=== PATIENT | female | born 1990 | race Caucasian/White ===

== ENCOUNTER 2016-12-12 18:59 | Emergency (ER) | payer BC ==
--- NOTE | 2016-12-12 19:28 | ERNOTE ---
<Emily Bowers - Last Filed: 12/12/16 19:43> Chest Pain/Cardiac HPI Chief Complaint: Palpitations Time Seen by Provider: 12/12/16 20:29 Source: patient Exam Limitations: no limitations Immunizations: IMMUNIZATION HX Immunizations Up to Date Yes History of Influenza Vaccine Yes Hx Pneumococcal Vaccination No Allergies/Adverse Reactions: Allergies No Known Allergies Allergy (Verified 02/18/16 13:54) Home Medications: HOME MEDICATIONS Metoprolol Succinate 25 mg PO QDIPM #30 tab.er.24h 12/12/16 [Last Taken Unknown] Potassium Chloride [K-Dur] 20 meq PO DAILY #14 tab 12/12/16 [Last Taken Unknown] Narrative: 26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 Pt has had this condition for awhile. She has been on Beta blockers in the remote past however abruptly stopped taking her Beta Cy one year ago for no reason. Denies chest pains or diaphoresis. Denies cough or congestion Review of Systems - Review of Systems Constitutional: Present: no symptoms reported EYE: Present: no symptoms reported ENT: Present: no symptoms reported Respiratory: Present: no symptoms reported Cardiology: Present: See HPI Gastrointestinal/Abdominal: Present: no symptoms reported Genitourinary: Present: no symptoms reported - Patient's Past Medical History Patient History - Medical: No pertinent hx, GERD Patient History - Cardiac/Respiratory: Arrhythmias Patient History - Cancer: No Hx of Cancer Patient History - Surgical Procedures: No surgical history Patient History - Other: None - Family History Father Family History - Medical: - Social History Living Situations: home Abuse History: No History of abuse Psych History: No pertinent hx Smoking Status: Current every day smoker Patient requests Smoking Cessation Consult: No Initiate information on Smoking Cessation: No Alcohol Use: none Drug Use: none - Immunizations Immunizations Up to Date: Yes Hx Pneumococcal Vaccination: No History of Influenza Vaccine: Yes Physical Exam - Physical Exam General Appearance: Present: wd/wn, alert, no apparent distress Ears, Nose, Throat: Present: normal ENT inspection Neck: Present: normal inspection, nontender, supple, full range of motion Respiratory: Present: no respiratory distress, normal breath sounds, no accessory muscle use, chest nontender, lungs clear Cardiovascular/Chest: Present: regular rate, rhythm, no murmur, normal peripheral pulses - rate is 98 and regular. pt states her pulse at work was 160 without any precipitating events ED Progress - Vital Signs Patient's Vital Signs:: I have reviewed the patient's vital signs. Vital Signs: Vital Signs 12/12/16 12/12/16 19:00 19:05 Temperature 37.5 C Pulse Rate 107 H 107 H Respiratory 18 Rate Blood Pressure 129/81 O2 Sat by Pulse 97 Oximetry - EKG EKG: NSR - Progress/Reassessment Chief Complaint: Palpitations - Transfer of Care Physician Sign Out: Emily Bowers Receiving Physician: Benny Riley Pending Results: Labs, X-ray results Expected Disposition: Discharge Departure - Departure Clinical Impression: Tachycardia Disposition: Home Follow Up Needed Condition: Good Instructions: Palpitations, [id number]-Wmer, Hypokalemia Additional Instructions: RESUME THE BETA CY AND A SMALL DOSE OF POTASSIUM YOUR BLOOD LEVEL WAS SLIGHTLY LOW. YOU NEED TO CALL YOUR DOCTOR OR THE CARDIOLOGY CLINIC HERE, , TO GET RECHECKED FOR THE POTASSIUM AND TO DISCUSS IF FURTHER EVALUATION OF YOUR HEART RATE PROBLEMS ARE NEEDED. Prescriptions: Metoprolol Succinate 25 mg PO QDIPM #30 tab.er.24h Potassium Chloride [K-Dur] 20 meq PO DAILY #14 tab <Benny Riley - Last Filed: 12/12/16 20:30> Chest Pain/Cardiac HPI Date of Service: 12/12/16 Immunizations: IMMUNIZATION HX Immunizations Up to Date Yes History of Influenza Vaccine Yes Hx Pneumococcal Vaccination No ED Progress - Results and Orders Patient's Lab Results:: I have reviewed the patient's lab results. Results and Orders: LABS ARE ALL NORMAL EXCEPT FOR A BORDERLINE LOW K+. - Vital Signs Vital Signs: Vital Signs 12/12/16 12/12/16 19:00 19:05 Temperature 37.5 C Pulse Rate 107 H 107 H Respiratory 18 Rate Blood Pressure 129/81 O2 Sat by Pulse 97 Oximetry - Progress/Reassessment Progress:: Improved - PT WILL BE DISCHARGED HOME ON BETA BLOCKERS AND K+ TO FOLLOW UP WITH PCP TO DISCUSS FURTHER EVALUATION.
[2016-12-12 19:36] LABS: Hematocrit 42.3 % (37.0-47.0); Hemoglobin 14.9 gm/dL (12.5-16.0); Mean Cell Volume 93.2 fl (78-100); Mean Corpuscular Hemoglobin 32.8 pg (27-31); Mean Corpuscular Hgb Conc 35.2 g/dl (32-36); Mean Platelet Volume 9.1 fl (6.0-9.5); Neutrophil # 4.5 K/mm3 (1.3-6.0); Neutrophil % 58.8 % (42-75.0); Platelet Count 239 K/mm3 (150-450); Red Blood Count 4.54 M/mm3 (4.2-5.4); Red Cell Distribution Width 11.5 % (11.5-14.0); White Blood Count 7.6 K/mm3 (4.0-10.5)
[2016-12-12 19:58] LABS: Albumin * 3.8 gm/dl (3.4-5.0); Anion Gap 12.2 mmol/L (6.8-13.8); BUN/Creatinine Ratio 11.3 (9.0-21.6); Bilirubin, Total 0.5 mg/dL (0.0-1.1); Ca. Corrected For Albumin 9.2 mg/dL (8.4-10.2); Calcium * 9.4 mg/dL (7.9-10.9); Carbon Dioxide 30.8 mmol/L (24-32.6); TSH * 0.852 uIU/mL (0.358-3.74); Total Protein 7.4 gm/dL (6.2-8.2)
[2016-12-12 20:04] LABS: Cocaine Ur Negative (NEGATIVE); Urine Barbiturate Negative (NEGATIVE); Urine Benzodiazepines Negative (NEGATIVE); Urine Opiates Negative (NEGATIVE); Urine PCP Negative (NEGATIVE); Urine THC Negative (NEGATIVE)
[2016-12-12 20:34] VITALS: BP 110/72
--- OUTSIDE RECORDS SUMMARY | 2016-12-12 20:38 | XMS REPORT | Continuity of Care Document ---
:1990 Author Organization [facility] ([facility]) Address [address] [place] [address] Phone [phone] Care Team Providers Name Role Phone Celine Bauer Primary Care Provider [phone] Source Comments This disclosure is being made pursuant to the Care Everywhere program, applicable federal and state laws, and may not contain all informaitonavailable regarding this patient.[facility] ([facility]) Active Allergies and Adverse Reactions No Known Allergies Current Medications Prescription Sig. Disp. Refills Start Date End Date Status CALCIUM CARBONATE (TUMS Take by mouth as Active PO) needed. promethazine 12.5 mg Take 1-2 Tabs by 30 Tab 1 09/27/2013 Active tablet mouth every 6 hours as needed. Indications: Migraine propranolol 60 mg XR Take 1 Cap (60 mg 30 Cap 11 12/21/2014 Active capsule total) by mouth daily clonazePAM 0.5 mg 1 tab qhs and 1/2 45 Tab 1 12/21/2014 Active tablet tab qam QUEtiapine 50 mg tablet Take 50mg nightly 120 Tab 1 12/27/2014 Active for 3 nights, then 100mg nightly for 3 nights, then 150mg nightly for 3 nights, then 200mg nightly thereafter. Active Problems Problem Noted Date Laceration 12/12/2014 Headache 01/24/2014 Dog bite of nose 11/22/2013 Eating disorder, unspecified 10/14/2013 Blurry vision 10/14/2013 Dyspnea 10/14/2013 Palpitation 10/14/2013 Anxiety state, unspecified 09/06/2013 IUD (intrauterine device) in place 04/21/2013 Overview: Mirena IUD inserted 04/21/13. Due for removal 04/2018. Perforated tympanic membrane 03/31/2013 Otorrhea 03/31/2013 Smoker 03/23/2013 Otalgia of right ear 03/11/2013 AOM (acute otitis media) 03/11/2013 Resolved Problems Problem Noted Date Resolved Date Threatened labor 01/28/2013 04/21/2013 Impaired glucose tolerance test 12/25/2012 04/21/2013 Overview: 1-hour WVR=945. 3-hour GTT [phone] Vaginal bleeding in 10/04/2012 04/21/2013 Overview: Pt reports intermittent spotting and bleeding throughout thus far. Had normal 10 wk sono confirming IUP with no subchorionic bleed or fluid in cul de sac. Pt reports similar bleeding throughout her last . Supervision of normal 07/27/2012 04/21/2013 Overview: At 09/28 visit, pt describes h/o hospitalizations with her last with concern for labor and chronic abruption. This has not been documented in her history. She describes receiving steroids and being on bed rest, but ultimately had term at 38 wk. Immunizations Name Dates Previously Given Next Due Influenza, quadrivalent PF 04/21/2013 Tdap 01/28/2013 Social History Tobacco Use Types Packs/Day Years Used Date Heavy Tobacco Smoker Cigarettes 1 2 Smokeless Tobacco: Never Used Tobacco Cessation:Ready to Quit: Yes; Counseling Given: Yes Comments: Alcohol Use Drinks/Week oz/Week Comments Yes 4 Cans of beer 1.5 Last Filed Vital Signs Vital Sign Reading Time Taken Blood Pressure 112/78 12/21/2014 3:23 PM CDT Pulse 97 12/21/2014 3:23 PM CDT Temperature 37.7 C (99.9 F) 12/21/2014 3:23 PM CDT Respiratory Rate 12 12/21/2014 3:23 PM CDT Height 1.6 m (5' 2.99") 12/21/2014 3:23 PM CDT Weight 47.356 kg (104 lb 6.4 oz) 12/21/2014 3:23 PM CDT Body Mass Index 18.5 12/21/2014 3:23 PM CDT Oxygen Saturation 99% 12/12/2014 6:21 AM CDT Plan of Care Patient Goal Type Goal Lifestyle Other Maintain current healthy habits. Health Maintenance Due Date Last Done Comments Hepatitis B Vaccine (1 of 3 - Primary Series) 1989 HPV Vaccine (1 of 3 - Female/Unknown 3 Dose Series) 2000 Lipid Disorder Screening 12/06/2007 MMR Vaccine 12/06/2007 Pneumococcal Vaccine (1 of 1 - PPSV23) 2008 Influenza Vaccine: Seasonal (#1) 02/12/2016 04/21/2013 Cervical Cancer Screening 04/21/2016 04/21/2013 Td Vaccine 01/28/2023 01/28/2013 Tdap Vaccine Completed 01/28/2013 Results from Last 3 Months Not on file
== END 2016-12-12 20:38 | disposition home or self-care (01) ==
LOC: ER 18:59
DX: R00.0 Tachycardia, unspecified (principal); F17.200 Nicotine dependence, unspecified, uncomplicated; Z91.14 Patient's other noncompliance with medication regimen

== ENCOUNTER 2017-04-16 11:46 | Emergency (ER) | payer BC ==
[2017-04-16 12:28] LABS: Hemoglobin 15.2 gm/dL (12.5-16.0); Mean Cell Volume 93.6 fl (78-100); Mean Corpuscular Hemoglobin 32.3 pg (27-31); Mean Corpuscular Hgb Conc 34.5 g/dl (32-36); Mean Platelet Volume 9.6 fl (6.0-9.5); Neutrophil # 4.2 K/mm3 (1.3-6.0); Platelet Count 256 K/mm3 (150-450); Red Cell Distribution Width 11.7 % (11.5-14.0); White Blood Count 7.1 K/mm3 (4.0-10.5)
[2017-04-16] MEDS ORDERED: ONDANSETRON HCL/PF 2 MG/ML VIAL IV ONE (12:48)
[2017-04-16] MEDS ORDERED: NORMAL SALINE 1,000 ML IV ONE (12:48)
--- NOTE | 2017-04-16 12:48 | ERNOTE ---
Chest Pain/Cardiac HPI Date of Service: 04/16/17 Chief Complaint: Palpitations Time Seen by Provider: 04/16/17 12:23 Source: patient Exam Limitations: no limitations Immunizations: IMMUNIZATION HX Immunizations Up to Date Yes History of Influenza Vaccine Yes Hx Pneumococcal Vaccination No Allergies/Adverse Reactions: Allergies No Known Allergies Allergy (Verified 04/16/17 12:14) Home Medications: HOME MEDICATIONS Omeprazole [Prilosec] 20 mg PO DAILY #30 cap 04/16/17 [Last Taken Unknown] Sertraline HCl [Zoloft] 50 mg PO DAILY #30 tab 04/16/17 [Last Taken Unknown] Narrative: Pt. comes in with c/o palpitations, acid indigestion, and weakness. Pt. states that she has been having these symptoms for over three months and is not able to pinpoint the exact date that it started but states that she has had difficulty with bulimia for 11 years. Pt. denies any SOB, CP, or fever, but states that she has chronic NVD. Pt. denies any prehospital treatment. Review of Systems - Review of Systems Constitutional: Present: fatigue, malaise. Absent: recent illness, fever, chills, weakness EYE: Present: no symptoms reported ENT: Present: no symptoms reported. Absent: nose congestion, nasal drainage, sore throat, throat swelling Respiratory: Present: no symptoms reported. Absent: shortness of breath, cough , wheezing Cardiology: Present: palpitations. Absent: chest pain Gastrointestinal/Abdominal: Present: nausea, vomiting, diarrhea, abdominal pain - LUQ, eating less, drinking less Genitourinary: Present: no symptoms reported Musculoskeletal: Present: no symptoms reported. Absent: back pain, joint pain Skin: Present: no symptoms reported - Patient's Past Medical History Patient History - Medical: GERD, Other - bulemia Patient History - Cardiac/Respiratory: Arrhythmias Patient History - Cancer: No Hx of Cancer Patient History - Surgical Procedures: No surgical history Patient History - Other: None - Family History Father Family History - Medical: - Social History Living Situations: home Abuse History: No History of abuse Psych History: No pertinent hx Alcohol Use: none Drug Use: none - Immunizations Immunizations Up to Date: Yes Hx Pneumococcal Vaccination: No History of Influenza Vaccine: Yes Physical Exam - Physical Exam General Appearance: Present: wd/wn, alert, no apparent distress Head Exam: Present: normal inspection, no evidence of injury Eye Exam: Normal inspection: bilateral, PERRL: bilateral, EOMI: bilateral Ears, Nose, Throat: Present: normal ENT inspection, pharyngeal erythema. Absent : nasal congestion, sinus pain/drainage, pharyngeal swelling, tonsillar exudate Neck: Present: normal inspection, nontender. Absent: lymphadenopathy (R), lymphadenopathy (L) Respiratory: Present: no respiratory distress, normal breath sounds, no accessory muscle use, chest nontender, lungs clear Cardiovascular/Chest: Present: no murmur, normal peripheral pulses, tachycardia Gastrointestinal/Abdominal: Present: normal bowel sounds, nontender, nondistended, soft, no organomegaly Back Exam: Present: normal inspection, normal range of motion, no CVA tenderness , no vertebral tenderness Extremity Exam: Present: normal inspection, non-tender, normal range of motion, no edema Neurological Exam: Present: alert, oriented, normal mood/affect, no motor/ sensory deficits Skin Exam: Present: normal color, warm/dry. Absent: pallor, skin rash ED Progress - Date and Time Seen: Date and Time: 04/16/17 13:38 Pt. with electrolyte imbalance but no severe changes. Will have pt. continue ensure and start prilosec and zoloft and have her follow up with the eating disorder clinic at [facility] for follow up per suyapa Strickland'josé manuel recommendation. 04/16/17 13:44 - Results and Orders Patient's Lab Results:: I have reviewed the patient's lab results. - Vital Signs Patient's Vital Signs:: I have reviewed the patient's vital signs. Vital Signs: Vital Signs 04/16/17 12:09 Temperature 37.0 C Pulse Rate 101 H Respiratory 16 Rate Blood Pressure 111/75 O2 Sat by Pulse 97 Oximetry - EKG EKG: NSR, other - short NC but no new acute changes EKG read: Reviewed by me EKG Comments: Interp by Dr Oliva - X-Ray X-Ray #1 X-Ray: chest Interpretation: Reviewed by me X-ray Comments: no acute cardiopulmonary process X-Ray #2 X-Ray: abdomen Interpretation: Reviewed by me X-ray Comments: R sided phlebolith and nonobstructive bowel gas pattern - Progress/Reassessment Chief Complaint: Palpitations Progress:: Improved Departure Clinical Impression: Bulimia nervosa - Departure Disposition: Home self-care Condition: Good Instructions: Eating Disorders, Bulimia Nervosa Additional Instructions: Please follow up with [facility] eating disorder clinic by calling for first available appointment with psychiatric care. Please continue ensure three times a day. Prescriptions: Omeprazole [Prilosec] 20 mg PO DAILY #30 cap Sertraline HCl [Zoloft] 50 mg PO DAILY #30 tab
[2017-04-16] MEDS ORDERED: SUCRALFATE 1 G/10 ML UDC PO ONE (12:49)
[2017-04-16] MEDS ORDERED: LIDOCAINE HCL 20 ML UDC PO ONE (12:49)
[2017-04-16] MEDS ORDERED: MAG HYDROX/ALUMINUM HYD/SIMETH 30 ML UDC PO ONE (12:49)
[2017-04-16 12:51] LABS: ALT 31 U/L (19-67); AST 33 U/L (0-48); Albumin * 3.6 gm/dl (3.4-5.0); Alkaline Phosphatase * 67 U/L (50-170); Anion Gap 10.6 mmol/L (6.8-13.8); BUN/Creatinine Ratio 18.3 (9.0-21.6); Bilirubin, Total 1.5 mg/dL (0.0-1.1); Blood Urea Nitrogen 15 mg/dL (3-23); Ca. Corrected For Albumin 9.1 mg/dL (8.4-10.2); Calcium * 9.1 mg/dL (7.9-10.9); Carbon Dioxide 31.7 mmol/L (24-32.6); Chloride 100 mmol/L (97-106); Glucose * 81 mg/dL (70-110); Magnesium 1.5 mg/dL (1.2-2.8); Potassium 3.3 mmol/L (3.4-4.6); Sodium 139 mmol/L (132-142); TSH * 1.569 uIU/mL (0.358-3.74); Troponin I Less than 0.017 ng/ml (0.00-0.10)
[2017-04-16 12:54] LABS: Prothrombin Time (Patient) 10.9 Seconds (9.4-11.4)
[2017-04-16 12:56] LABS: INR 1.05 INR (0.90-1.10); Partial Thrombolplastin Time 27.6 Seconds (24-32)
[2017-04-16] MEDS ORDERED: ONDANSETRON HCL/PF 2 MG/ML VIAL ONE (12:59)
[2017-04-16 13:14] VITALS: BP 130/78
[2017-04-16 13:21] LABS: Urine Bilirubin 1 mg/dl (NEGATIVE); Urine Blood Negative /ul (NEGATIVE); Urine Ketone 15 mg/dL (NEGATIVE); Urine Nitrite Negative (NEGATIVE); Urine Protein 15 mg/dL (NEGATIVE); Urine Specific Gravity >=1.030 SP.GR. (1.005-1.010); Urine Urobilinogen Normal (NORMAL)
[2017-04-16] MEDS ORDERED: hydrOXYzine PAMOATE 25 MG CAPSULE PO ONE (13:29)
[2017-04-16 13:30] LABS: Urine Appearance Clear; Urine Bacteria 1+; Urine Color Dark Yellow; Urine RBC 0-5 /hpf (0-5); Urine WBC None Seen /hpf (0-5)
[2017-04-16] MEDS ORDERED: hydrOXYzine PAMOATE 25 MG CAPSULE ONE (13:33)
== END 2017-04-16 14:12 | disposition home or self-care (01) ==
LOC: ER 11:46
DX: F50.2 Bulimia nervosa (principal)
CPT/HCPCS: 36415; 71020; 74020; 80053; 81001; 82330; 83735; 84100; 84443; 84484; 85025; 85610; 85730; 93005; 96374; 99283; J2405

== ENCOUNTER 2019-07-18 20:46 | Observation (INO) ==
[2019-07-18] MEDS ORDERED: ONDANSETRON HCL/PF 2 MG/ML VIAL IV ONE (21:21)
[2019-07-18] MEDS ORDERED: NORMAL SALINE 1,000 ML IV ONE ×2 (21:21→23:11)
--- NOTE | 2019-07-18 21:21 | ERNOTE ---
Medical Problem HPI - Narrative Date of Service: 07/18/19 - General Chief Complaint: Nausea/Vomiting Time Seen by Provider: 07/18/19 21:17 Source: patient Exam Limitations: no limitations - Immun/Allergies/Home Medications Immunizations: IMMUNIZATION HX Immunizations Up to Date Yes History of Influenza Vaccine Yes Hx Pneumococcal Vaccination Yes Allergies/Adverse Reactions: Allergies No Known Allergies Allergy (Verified 07/18/19 21:01) Home Medications: HOME MEDICATIONS prenat.vits,chitra,mze-bjrq-kbnfz 1 tab PO DAILY 03/16/19 [Last Taken Unknown] amoxicillin 875 mg-potassium clavulanate 125 mg tablet 1 tab PO BID 7 Days #14 tab 07/16/19 [Last Taken Unknown] - History of Present History Narrative: 28-year-old female complaining of nausea vomiting diarrhea for about 4 days where he had a week ago which she had ears irrigated she developed a sinus infection she was put on Augmentin and since then has been having nausea and vomiting and diarrhea . She comes to the ED complaining of feeling dry fatigued she is 7 months she is a 4 para 3 no significant past medical history she has not been able to tolerate solid food for a few days Date (Duration): 07/14/19 Time (Timing): 21:18 Timing: constant Severity: moderate Review of Systems - Review of Systems Constitutional: Present: no symptoms reported EYE: Present: no symptoms reported ENT: Present: no symptoms reported Respiratory: Present: no symptoms reported Cardiology: Present: no symptoms reported Gastrointestinal/Abdominal: Present: no symptoms reported Genitourinary: Present: no symptoms reported Musculoskeletal: Present: no symptoms reported Skin: Present: no symptoms reported Neurological: Present: no symptoms reported Endocrine: Present: no symptoms reported Hematologic/Lymphatic: Present: no symptoms reported Psych: Present: no symptoms reported All Other Systems: All systems neg except as marked Medical History (Last Reviewed 07/18/19 @ 21:19 by Prasanth Austin MD) LGSIL (low grade squamous intraepithelial dysplasia) (Acute) Colposcopy next visit (Acute) Initial OB visit The patient is dated by her LMP which is consistent with today's ultrasound Pap UTD GC/CT collected today PNL ordered today History of delivery (Acute) Offered progesterone which the patient declined History of tachycardia (Acute) Pt advised to see her veterinary medicine doctor for her tachycardia Vaginal discharge (Acute) SVT (supraventricular tachycardia) (Acute) Screening for condition (Acute) Left ankle sprain (Acute) Foot sprain (Acute) Tachycardia (Acute) Bulimia nervosa (Acute) Gastroenteritis and colitis, viral (Acute) Anemia Onset Date: Unknown Asthma Onset Date: Unknown Colitis Onset Date: Unknown Generalized anxiety disorder Onset Date: Unknown IBS (irritable bowel syndrome) Onset Date: Unknown Palpitations Onset Date: Unknown Tachycardia UTI (urinary tract infection) Onset Date: Unknown Surgical History: Surgical History (Last Reviewed 07/18/19 @ 21:19 by Prasanth Austin MD) History of placement of ear tubes Onset Date: Unknown Family History: Family History (Last Reviewed 07/18/19 @ 21:01 by Tiffanie Loredo, RN) Grandmother Heart problem Grandfather Leukemia Paternal Mother Cancer Hypertension Father Cancer Grandmother Cancer Paternal Grandfather Cancer Maternal Diabetes Social History: (Last Reviewed 07/18/19 @ 21:01 by Tiffanie Loredo RN) Social History: adopted: No Marital status: Single household members: significant other number of children: 2 number of grandchildren: 0 current occupational status: employed 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 Highest education level completed: high school graduate Sexually Active: Yes Service: No Tobacco: Smoking Status: Current every day smoker tobacco type: cigarettes Smoking cigarettes per day: 20.0 Smoking packs per day: 1 Alcohol: alcohol intake: former details: stopped with Substance Use: substance use type: does not use Dietary Habits: caffeine: No Physical Exam - Physical Exam General Appearance: Present: wd/wn, alert, no apparent distress Head Exam: Present: normal inspection Eye Exam: Normal inspection: bilateral, PERRL: bilateral, EOMI: bilateral Ears, Nose, Throat: Present: normal ENT inspection, dry mucous membranes Neck: Present: normal inspection Respiratory: Present: no respiratory distress Cardiovascular/Chest: Present: regular rate, rhythm Gastrointestinal/Abdominal: Present: normal bowel sounds, nontender, nondistended, soft Back Exam: Present: normal inspection Extremity Exam: Present: normal inspection Neurological Exam: Present: alert, oriented Skin Exam: Present: normal color, warm/dry Progress - Results and Orders Patient's Lab Results:: I have reviewed the patient's lab results. Results and Orders: Laboratory Tests 07/18/19 07/18/19 07/18/19 21:50 21:50 21:50 WBC 9.4 RBC 3.85 L Hgb 12.2 L Hct 35.5 L MCV 92.2 MCH 31.7 H MCHC 34.4 Plt Count 215 Neutrophils % 62.4 Lymphocytes % 31.2 Sodium 138 Plasma Sodium 138 Potassium 2.2 L* D Chloride 97 Carbon Dioxide 32.4 Anion Gap 10.8 BUN 4 Creatinine 0.56 Est GFR (Non-Af Amer) 136 H D BUN/Creatinine Ratio 7.1 L Random Glucose 70 Calcium 8.2 Calcium Adj for Albumin 9.4 Total Bilirubin 0.1 AST 16 ALT 11 L Alkaline Phosphatase 137 Total Protein 5.8 L Albumin 2.1 L Urine Color Yellow Urine Appearance Slightly cloudy Urine pH 8.5 Ur Specific [place] 1.010 Urine Protein 100 H Urine Glucose (UA) Negative Urine Ketones Negative Urine Blood Negative Urine Nitrate Negative Urine Bilirubin Negative Prot Sulfosalicylic Acd 2+ H Urine Urobilinogen Normal Ur Leukocyte Esterase Negative Urine RBC None seen Urine WBC 0-5 Ur Epithelial Cells 10-25 H Urine Bacteria 1+ H Urine Culture Comments No culture indicated - Vital Signs Patient's Vital Signs:: I have reviewed the patient's vital signs. Vital Signs: Vital Signs 07/18/19 20:57 Temperature 37 C Pulse Rate 79 Respiratory Rate 18 Blood Pressure 101/73 O2 Sat by Pulse Oximetry 99 - EKG EKG #1 EKG: NSR EKG read: Interp. by me EKG Comments: EKG sinus rhythm with sinus arrhythmia heart rate of 68 - Progress/Reassessment Chief Complaint: Nausea/Vomiting Progress:: Improved Plan - Plan Plan: With patient's potassium at 2.2 she will need multiple K riders so she will be admitted we are calling OB on-call patient is stable feeling better not throwing up Patient to be admitted to [facility] Departure Clinical Impression: Nausea vomiting and diarrhea, Hypokalemia due to excessive gastrointestinal loss of potassium, and not yet delivered in second trimester - Departure Disposition: Short Term Hospital Inpatient Condition: Good Additional Instructions: Admit to Dr Newell
[2019-07-18 21:55] LABS: Hematocrit 35.5 % (37.0-47.0); Hemoglobin 12.2 gm/dL (12.5-16.0); Mean Cell Volume 92.2 fl (78-100); Mean Corpuscular Hemoglobin 31.7 pg (27-31); Mean Corpuscular Hgb Conc 34.4 g/dl (32-36); Mean Platelet Volume 9.5 fl (8-12.5); Neutrophil # 5.9 K/mm3 (1.3-6.0); Neutrophil % 62.4 % (42-75.0); Platelet Count 215 K/mm3 (150-450); Red Blood Count 3.85 M/mm3 (4.2-5.4); Red Cell Distribution Width 12.5 % (11.5-14.0); White Blood Count 9.4 K/mm3 (4.0-10.5)
[2019-07-18 21:56] LABS: Urine Bilirubin Negative (NEGATIVE); Urine Blood Negative /ul (NEGATIVE); Urine Ketone Negative (NEGATIVE); Urine Nitrite Negative (NEGATIVE); Urine Protein 100 mg/dL (NEGATIVE); Urine Urobilinogen Normal (NORMAL); Urine pH 8.5 pH (5.0-7.0)
[2019-07-18 22:04] LABS: Urine Appearance Slightly Cloudy (CLEAR); Urine Color Yellow
[2019-07-18 22:05] LABS: Urine Bacteria 1+; Urine RBC None Seen /hpf (0-5); Urine WBC 0-5 /hpf (0-5)
[2019-07-18 22:10] LABS: Albumin * 2.1 gm/dl (3.4-5.0); Anion Gap 10.8 mmol/L (6.8-13.8); BUN/Creatinine Ratio 7.1 (9.0-21.6); Bilirubin, Total 0.1 mg/dL (0.0-1.1); Ca. Corrected For Albumin 9.4 mg/dL (8.4-10.2); Calcium * 8.2 mg/dL (7.9-10.9); Carbon Dioxide 32.4 mmol/L (24-32.6); Total Protein 5.8 gm/dL (6.2-8.2)
[2019-07-18 22:11] LABS: Potassium 2.2 mmol/L (3.4-4.6)
[2019-07-18] MEDS: POTASSIUM CHLORIDE IN WATER 100 ML IV SCH ×2 (22:36→23:59)
[2019-07-18] MEDS ORDERED: ONDANSETRON HCL/PF 2 MG/ML VIAL IV PRN (23:10)
[2019-07-19] MEDS: POTASSIUM CHLORIDE IN WATER 100 ML IV SCH ×6 (01:06→09:37)
[2019-07-19] MEDS ORDERED: POTASSIUM CHLORIDE 20 MEQ TABLET.SA PO ONE (05:28)
[2019-07-19] MEDS ORDERED: NORMAL SALINE 1,000 ML IV PRN (08:38)
--- NOTE | 2019-07-19 09:24 | HP ---
Chief Complaint - Chief Complaint Date of Service: 07/19/19 Time of Service: 09:11 Chief Complaint: n/v/d History of Present Illness: 28 at 25 3/7 weeks presents to ER complaining of N/V/D for past 4 days. Patient states she has had URI s/s for the past 1-2 weeks, was seen at the walk- in clinic and diagnosed with sinus infection. She was placed on Augmentin which she did not tolerate well - that is when the n/v/d began. She has not been able to keep any solid food down for the past few days and only a little fluid. Other family members are also sick with URI s/s. Medical History (Last Reviewed 07/19/19 @ 09:19 by Aj Newell DO) LGSIL (low grade squamous intraepithelial dysplasia) (Acute) Colposcopy next visit (Acute) Initial OB visit The patient is dated by her LMP which is consistent with today's ultrasound Pap UTD GC/CT collected today PNL ordered today History of delivery (Acute) Offered progesterone which the patient declined History of tachycardia (Acute) Pt advised to see her clock smith for her tachycardia Vaginal discharge (Acute) SVT (supraventricular tachycardia) (Acute) Screening for condition (Acute) Left ankle sprain (Acute) Foot sprain (Acute) Tachycardia (Acute) Bulimia nervosa (Acute) Gastroenteritis and colitis, viral (Acute) Anemia Onset Date: Unknown Asthma Onset Date: Unknown Colitis Onset Date: Unknown Generalized anxiety disorder Onset Date: Unknown IBS (irritable bowel syndrome) Onset Date: Unknown Palpitations Onset Date: Unknown Tachycardia UTI (urinary tract infection) Onset Date: Unknown Surgical History: Surgical History (Last Reviewed 07/19/19 @ 09:19 by Aj Newell DO) History of placement of ear tubes Onset Date: Unknown Family History: Family History (Last Reviewed 07/19/19 @ 09:19 by Aj Newell DO) Grandmother Heart problem Grandfather Leukemia Paternal Mother Cancer Hypertension Father Cancer Grandmother Cancer Paternal Grandfather Cancer Maternal Diabetes Social History: (Last Reviewed 07/19/19 @ 09:19 by Aj Newell DO) Social History: adopted: No Marital status: Single household members: significant other number of children: 2 number of grandchildren: 0 current occupational status: employed 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 Highest education level completed: high school graduate Sexually Active: Yes Service: No Tobacco: Smoking Status: Current every day smoker tobacco type: cigarettes Smoking cigarettes per day: 20.0 Smoking packs per day: 1 Alcohol: alcohol intake: former details: stopped with Substance Use: substance use type: does not use Dietary Habits: caffeine: No Review Of Systems (GEN) - Review of Systems Generalized/Overall Review: Present: Weakness, Malaise, Fatigue Respiratory: Present: Cough Cardiac: Present: No Symptoms Reported Abdominal: Present: Nausea, Vomiting, Diarrhea Genitourinary: Present: No Symptoms Reported Musculoskeletal: Present: No Symptoms Reported Neurological: Present: No Symptoms Reported Skin: Present: Dryness Endocrine: Present: No Symptoms Reported Immunizations: IMMUNIZATION HX Immunizations Up to Date Yes History of Influenza Vaccine Yes Hx Pneumococcal Vaccination Yes Allergies/Adverse Reactions: Allergies Allergy/AdvReac Type Severity Reaction Status Date / Time No Known Allergies Allergy Verified 07/18/19 21:01 Home Medications: HOME MEDICATIONS prenat.vits,chitra,[id number] 1 tab PO DAILY 03/16/19 [Last Taken Unknown] amoxicillin 875 mg-potassium clavulanate 125 mg tablet 1 tab PO BID 7 Days #14 tab 07/16/19 [Last Taken Unknown] Exam - Exam Vital Signs: Vital Signs - Last Taken Temp 36.7 C 07/19/19 07:51 Pulse 68 07/19/19 07:51 Resp 14 07/19/19 07:51 BP 89/34 L 07/19/19 07:51 Pulse Ox 97 07/19/19 07:51 Constitutional: Present: Oriented x3, Cooperative, Other - sleepy and ill appearing ENT Exam: Present: hearing grossly normal Breasts: Present: Exam deferred Respiratory: Present: lungs clear, no respiratory distress Cardiovascular/Chest: Present: regular rate, rhythm, no edema Abdomen: Present: soft, nontender, no rebound tenderness, other - gravid /Rectal: Present: Exam deferred, Other - FHT 145 by doppler Extremity: Present: no pedal edema, no calf tenderness Skin Exam: Present: normal color, warm/dry, no cyanosis Lymphatic: Present: no adenopathy Neurologic: Present: normal mood/affect, oriented x 3 Eye contact: Present: cooperative, good eye contact Thoughts: Present: normal thought pattern, normal mood /affect Diagnostic Studies: Abnormal Lab Results 07/18/19 07/18/19 07/18/19 Range/Units 21:50 21:50 21:50 RBC 3.85 L (4.2-5.4) M/mm3 Hgb 12.2 L (12.5-16.0) gm/dL Hct 35.5 L (37.0-47.0) % MCH 31.7 H (27-31) pg Potassium 2.2 L* D (3.4-4.6) mmol/L Est GFR (Non-Af Amer) 136 H D (60-130) mL/min BUN/Creatinine Ratio 7.1 L (9.0-21.6) ALT 11 L (19-67) U/L Total Protein 5.8 L (6.2-8.2) gm/dL Albumin 2.1 L (3.4-5.0) gm/dl Urine Protein 100 H (NEGATIVE) mg/dL Prot Sulfosalicylic Acd 2+ H (0) mg/dL Ur Epithelial Cells 10-25 H (0-5) /hpf Urine Bacteria 1+ H (NONE) 07/19/19 Range/Units 04:30 RBC (4.2-5.4) M/mm3 Hgb (12.5-16.0) gm/dL Hct (37.0-47.0) % MCH (27-31) pg Potassium 2.6 L (3.4-4.6) mmol/L Est GFR (Non-Af Amer) (60-130) mL/min BUN/Creatinine Ratio (9.0-21.6) ALT (19-67) U/L Total Protein (6.2-8.2) gm/dL Albumin (3.4-5.0) gm/dl Urine Protein (NEGATIVE) mg/dL Prot Sulfosalicylic Acd (0) mg/dL Ur Epithelial Cells (0-5) /hpf Urine Bacteria (NONE) Laboratory Results WBC 9.4 K/mm3 (4.0-10.5) 07/18/19 21:50 RBC 3.85 M/mm3 (4.2-5.4) L 07/18/19 21:50 Hgb 12.2 gm/dL (12.5-16.0) L 07/18/19 21:50 Hct 35.5 % (37.0-47.0) L 07/18/19 21:50 MCV 92.2 fl (78-100) 07/18/19 21:50 MCH 31.7 pg (27-31) H 07/18/19 21:50 MCHC 34.4 g/dl (32-36) 07/18/19 21:50 RDW 12.5 % (11.5-14.0) 07/18/19 21:50 Plt Count 215 K/mm3 (150-450) 07/18/19 21:50 MPV 9.5 fl (8-12.5) 07/18/19 21:50 Immature Gran % (Auto) 0.30 % (0.001-0.429) 07/18/19 21:50 Immature Gran # (Auto) 0.03 K/mm3 (0.000-0.0310) 07/18/19 21:50 Neutrophils % 62.4 % (42-75.0) 07/18/19 21:50 Lymphocytes % 31.2 % (20-51) 07/18/19 21:50 Monocytes % 5.7 % (0.0-9) 07/18/19 21:50 Eosinophils % 0.2 % (0.0-3.0) 07/18/19 21:50 Basophils % 0.2 % (0.0-1.0) 07/18/19 21:50 Nucleated RBC % 0.0 k/mm3 (0-1) 07/18/19 21:50 Neutrophils # 5.9 K/mm3 (1.3-6.0) 07/18/19 21:50 Lymphocytes # 2.92 k/mm3 (1.5-3.5) 07/18/19 21:50 Monocytes # 0.5 k/mm3 (0.0-1.0) 07/18/19 21:50 Eosinophils # 0.0 k/mm3 (0.0-0.7) 07/18/19 21:50 Absolute Basophils 0.0 k/mm3 (0.0-0.1) 07/18/19 21:50 Sodium 138 mmol/L (132-142) 07/18/19 21:50 Plasma Sodium 138 mmol/L (130-142) 07/18/19 21:50 Potassium 2.6 mmol/L (3.4-4.6) L 07/19/19 04:30 Chloride 97 mmol/L (97-106) 07/18/19 21:50 Carbon Dioxide 32.4 mmol/L (24-32.6) 07/18/19 21:50 Anion Gap 10.8 mmol/L (6.8-13.8) 07/18/19 21:50 BUN 4 mg/dL (3-23) 07/18/19 21:50 Creatinine 0.56 mg/dL (0.4-1.4) 07/18/19 21:50 Est GFR (Non-Af Amer) 136 mL/min (60-130) H D 07/18/19 21:50 BUN/Creatinine Ratio 7.1 (9.0-21.6) L 07/18/19 21:50 Random Glucose 70 mg/dL (70-110) 07/18/19 21:50 Calcium 8.2 mg/dL (7.9-10.9) 07/18/19 21:50 Calcium Adj for Albumin 9.4 mg/dL (8.4-10.2) 07/18/19 21:50 Total Bilirubin 0.1 mg/dL (0.0-1.1) 07/18/19 21:50 AST 16 U/L (0-48) 07/18/19 21:50 ALT 11 U/L (19-67) L 07/18/19 21:50 Alkaline Phosphatase 137 U/L (50-170) 07/18/19 21:50 Total Protein 5.8 gm/dL (6.2-8.2) L 07/18/19 21:50 Albumin 2.1 gm/dl (3.4-5.0) L 07/18/19 21:50 Urine Color Yellow 07/18/19 21:50 Urine Appearance Slightly cloudy (CLEAR) 07/18/19 21:50 Urine pH 8.5 pH (5.0-7.0) 07/18/19 21:50 Ur Specific [place] 1.010 SP.GR. (1.005-1.010) 07/18/19 21:50 Urine Protein 100 mg/dL (NEGATIVE) H 07/18/19 21:50 Urine Glucose (UA) Negative mg/dL (NEGATIVE) 07/18/19 21:50 Urine Ketones Negative mg/dL (NEGATIVE) 07/18/19 21:50 Urine Blood Negative /ul (NEGATIVE) 07/18/19 21:50 Urine Nitrate Negative (NEGATIVE) 07/18/19 21:50 Urine Bilirubin Negative mg/dl (NEGATIVE) 07/18/19 21:50 Prot Sulfosalicylic Acd 2+ mg/dL (0) H 07/18/19 21:50 Urine Urobilinogen Normal EU/dl (NORMAL) 07/18/19 21:50 Ur Leukocyte Esterase Negative /ul (NEGATIVE) 07/18/19 21:50 Urine RBC None seen /hpf (0-5) 07/18/19 21:50 Urine WBC 0-5 /hpf (0-5) 07/18/19 21:50 Ur Epithelial Cells 10-25 /hpf (0-5) H 07/18/19 21:50 Urine Bacteria 1+ (NONE) H 07/18/19 21:50 Urine Culture Comments No culture indicated 07/18/19 21:50 Assessment/Plan - Assessment/Plan (1) Nausea vomiting and diarrhea Assessment: Admit 23h observation for IV K+ replenishment, IV hydration, and antiemetics. Check for flu if not already done at walk-in clinic. Problem: Acute (2) Hypokalemia due to excessive gastrointestinal loss of potassium Problem: Acute (3) and not yet delivered in second trimester Problem: Acute (4) History of delivery Problem: Acute (5) History of tachycardia Problem: Acute
--- NOTE | 2019-07-19 13:01 | DS ---
(1) Nausea vomiting and diarrhea Problem: Resolved (2) Hypokalemia due to excessive gastrointestinal loss of potassium Problem: Resolved (3) and not yet delivered in second trimester Problem: Acute (4) History of delivery Problem: Chronic (5) History of tachycardia Problem: Chronic Date of Discharge:: 07/19/19 Hospital Course: Patient was admitted from ER for critical hypokalemia due to severe and persistent nausea, vomiting, and diarrhea. She required 8 K+ packs with IV hydration to bring K+ back to normal range. Her s/s responded well to Zofran and IV hydration. She tolerated a regular lunch and will be discharged to home to follow up with her primary care and OB provider. Procedures Performed: see notes below - IV electrolytes and fluids. Antiemetics. Results and Findings: Lab Pending Results 07/18/19 21:50: WBC 9.4, RBC 3.85 L, Hgb 12.2 L, Hct 35.5 L, MCV 92.2, MCH 31.7 H, MCHC 34.4, RDW 12.5, Plt Count 215, MPV 9.5, Immature Gran % (Auto) 0.30, Immature Gran # (Auto) 0.03, Neutrophils % 62.4, Lymphocytes % 31.2, Monocytes % 5.7, Eosinophils % 0.2, Basophils % 0.2, Nucleated RBC % 0.0, Neutrophils # 5.9, Lymphocytes # 2.92, Monocytes # 0.5, Eosinophils # 0.0, Absolute Basophils 0.0 07/18/19 21:50: Sodium 138, Plasma Sodium 138, Potassium 2.2 L* D, Chloride 97, Carbon Dioxide 32.4, Anion Gap 10.8, BUN 4, Creatinine 0.56, Est GFR (Non-Af Amer) 136 H D, BUN/Creatinine Ratio 7.1 L, Random Glucose 70, Calcium 8.2, Calcium Adj for Albumin 9.4, Total Bilirubin 0.1, AST 16, ALT 11 L, Alkaline Phosphatase 137, Total Protein 5.8 L, Albumin 2.1 L 07/18/19 21:50: Urine Color Yellow, Urine Appearance Slightly cloudy, Urine pH 8.5, Ur Specific [place] 1.010, Urine Protein 100 H, Urine Glucose (UA) Negative, Urine Ketones Negative, Urine Blood Negative, Urine Nitrate Negative, Urine Bilirubin Negative, Prot Sulfosalicylic Acd 2+ H, Urine Urobilinogen Normal, Ur Leukocyte Esterase Negative, Urine RBC None seen, Urine WBC 0-5, Ur Epithelial Cells 10-25 H, Urine Bacteria 1+ H, Urine Culture Comments No culture indicated 07/19/19 04:30: Potassium 2.6 L 07/19/19 09:43: Influenza Type A Ag Negative, Influenza Type B Ag Negative 07/19/19 10:27: Potassium 3.8 D Discharge Location: Home Disposition: Home self-care Condition: Stable Discharge Activity: Activity as tolerated Discharge Diet: Other - BRAT diet, Gatoraide or other equivalent sport drink in a 1:3 ratio with water. Complete Home Medications List: Complete Home Medication List: carlaat.vits,chitra,[id number]-[id number]-llpgf 1 tab PO DAILY 03/16/19 amoxicillin 875 mg-potassium clavulanate 125 mg tablet 1 tab PO BID 7 Days #14 tab 07/16/19
[2019-07-19 13:21] VITALS: BP 95/58
== END 2019-07-19 13:39 | disposition home or self-care (01) ==
LOC: MS 20:46 → ER 20:46 → MS 23:30
PROVIDERS: ADMIT Obstetrics & Gynecology; ATTEND Obstetrics & Gynecology
CPT/HCPCS: 36415; 59025; 80053; 81001; 84132; 85025; 87400; 87449; 93005; 96365; 96366; 96375; 99285; G0378; J2405

== ENCOUNTER 2020-12-04 14:29 | Observation (INO) ==
[2020-12-04] MEDS ORDERED: NORMAL SALINE 1,000 ML IV ONE ×2 (14:37→15:14)
--- NOTE | 2020-12-04 14:43 | ERNOTE ---
Medical Problem HPI - Narrative Date of Service: 12/04/20 - General Chief Complaint: General Assessment Time Seen by Provider: 12/04/20 14:31 Source: patient, RN notes reviewed Exam Limitations: no limitations - Immun/Allergies/Home Medications Immunizations: IMMUNIZATION HX Immunizations Up to Date Yes History of Influenza Vaccine No Hx Pneumococcal Vaccination No Allergies/Adverse Reactions: Allergies No Known Allergies Allergy (Verified 10/30/19 15:08) Home Medications: HOME MEDICATIONS Levonorgestrel [Mirena] 1 ea IY 10/30/19 [Last Taken Unknown] - History of Present History Narrative: Nona is a 29 year old female brought to the ED by private vehicle from her work ([employer]) for spasms and jerking in her extremities. She has been working outside in the heat but reports that she is drinking plenty of water. Aside from feeling tired from working a double shift yesterday, she reports that she was feeling fine when she got up this morning. She denies any vomiting or diarrhea. She has a Mirena IUD and does not have periods. She has a history of hypokalemia. She was admitted with a potassium of 2.2 but was and had been having vomiting and diarrhea at the time. She reports that she sometimes takes supplemental potassium and took a dose today when she began to not feel right. Date (Duration): 12/04/20 Timing: intermittent Review of Systems - Review of Systems Constitutional: Present: fatigue. Absent: recent illness, fever, chills EYE: Absent: eye pain, vision changes ENT: Absent: ear pain, nose congestion, nasal drainage, sore throat Respiratory: Absent: shortness of breath, cough Cardiology: Absent: chest pain, palpitations, syncope Gastrointestinal/Abdominal: Absent: nausea, vomiting, diarrhea, abdominal pain, eating less, drinking less Genitourinary: Absent: dysuria, decreased urinary output Musculoskeletal: Present: muscle stiffness. Absent: muscle pain, joint pain Skin: Absent: rash, lesions Neurological: Absent: headache, dizziness/light-headedness Endocrine: Present: no symptoms reported Hematologic/Lymphatic: Absent: easy bruising, easy bleeding Psych: Present: no symptoms reported Medical History (Last Reviewed 12/04/20 @ 15:31 by Kimber Simpson NP) LGSIL (low grade squamous intraepithelial dysplasia) (Acute) Colposcopy next visit (Acute) Initial OB visit The patient is dated by her LMP which is consistent with today's ultrasound Pap UTD GC/CT collected today PNL ordered today History of delivery (Chronic) Offered progesterone which the patient declined History of tachycardia (Chronic) 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 Vaginal discharge (Acute) SVT (supraventricular tachycardia) (Acute) Screening for condition (Acute) Left ankle sprain (Acute) Foot sprain (Acute) Tachycardia (Acute) Bulimia nervosa (Acute) Gastroenteritis and colitis, viral (Acute) Anemia Onset Date: Unknown Asthma Onset Date: Unknown Colitis Onset Date: Unknown Generalized anxiety disorder Onset Date: Unknown IBS (irritable bowel syndrome) Onset Date: Unknown Palpitations Onset Date: Unknown Tachycardia UTI (urinary tract infection) Onset Date: Unknown Surgical History: Surgical History (Last Reviewed 12/04/20 @ 15:31 by Kimber Simpson NP) History of placement of ear tubes Onset Date: Unknown Family History: Family History (Last Reviewed 12/04/20 @ 15:31 by Kimber Simpson NP) Grandmother Heart problem Grandfather Leukemia Paternal Mother Cancer Hypertension Father Cancer Grandmother Cancer Paternal Grandfather Cancer Maternal Diabetes Social History: (Last Reviewed 12/04/20 @ 15:31 by Kimber Simpson NP) Social History: adopted: No Marital status: Single household members: significant other number of children: 2 number of grandchildren: 0 current occupational status: employed 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 Highest level of school completed/degree received: high school graduate Sexually Active: Yes Service: No Tobacco: Smoking Status: Current every day smoker tobacco type: cigarettes Smoking cigarettes per day: 4 Smoking packs per day: 1 Alcohol: alcohol intake: former details: stopped with Substance Use: substance use type: does not use Dietary Habits: caffeine: No Physical Exam - Physical Exam General Appearance: Present: alert, mild distress, anxious, thin Head Exam: Present: normal inspection Eye Exam: Normal inspection: bilateral Ears, Nose, Throat: Present: normal ENT inspection, normal pharynx Neck: Present: normal inspection, nontender, supple, full range of motion Respiratory: Present: no respiratory distress, normal breath sounds, no accessory muscle use, lungs clear Cardiovascular/Chest: Present: no murmur, normal peripheral pulses, tachycardia Gastrointestinal/Abdominal: Present: nontender, nondistended, soft Extremity Exam: Present: normal inspection, normal range of motion, no edema Neurological Exam: Present: alert, oriented, normal mood/affect, no motor/sensory deficits Skin Exam: Present: normal color, warm/dry Progress - Results and Orders Patient's Lab Results:: I have reviewed the patient's lab results. - Vital Signs Patient's Vital Signs:: I have reviewed the patient's vital signs. Vital Signs: Vital Signs 12/04/20 14:30 Temperature 37.0 C Pulse Rate 115 H Respiratory Rate 16 Blood Pressure 134/95 H O2 Sat by Pulse Oximetry 98 - EKG EKG #1 EKG: NSR EKG read: Reviewed by me - Progress/Reassessment Chief Complaint: General Assessment Progress:: Improved Progress Note-Subjective: 12/04/20 16:56 The patient has acute hypokalemia with a potassium of 2.5. The cause of this is unclear. She will be admitted to observation status under the care of Dr. Quiroz. She is currently receiving her second K-rider. Departure Clinical Impression: Acute hypokalemia - Departure Disposition: Still a patient Condition: Stable
[2020-12-04 14:48] LABS: Hematocrit 41.9 % (37.0-47.0); Hemoglobin 14.3 gm/dL (12.5-16.0); Mean Cell Volume 94.4 fl (78-100); Mean Corpuscular Hemoglobin 32.2 pg (27-31); Mean Corpuscular Hgb Conc 34.1 g/dl (32-36); Mean Platelet Volume 8.7 fl (8-12.5); Neutrophil # 5.1 K/mm3 (1.3-6.0); Neutrophil % 54.8 % (42-75.0); Platelet Count 287 K/mm3 (150-450); Red Blood Count 4.44 M/mm3 (4.2-5.4); Red Cell Distribution Width 11.4 % (11.5-14.0); White Blood Count 9.3 K/mm3 (4.0-10.5)
[2020-12-04 15:11] LABS: Albumin * 3.7 gm/dl (3.4-5.0); BUN/Creatinine Ratio 11.4 (9.0-21.6); Bilirubin, Total 0.4 mg/dL (0.0-1.1); Ca. Corrected For Albumin 8.4 mg/dL (8.4-10.2); Calcium * 8.5 mg/dL (7.9-10.9); Carbon Dioxide 26.5 mmol/L (24-32.6); Potassium 2.5 mmol/L (3.4-4.6); Total Protein 7.1 gm/dL (6.2-8.2)
[2020-12-04] MEDS ORDERED: POTASSIUM CHLORIDE IN WATER 100 ML IV ONE ×2 (15:14→16:31)
[2020-12-04 16:22] LABS: Urine Bilirubin Negative (NEGATIVE); Urine Ketone Negative (NEGATIVE); Urine Nitrite Negative (NEGATIVE); Urine Protein Negative (NEGATIVE); Urine Urobilinogen Normal (NORMAL); Urine pH 8.5 pH (5.0-7.0)
[2020-12-04 16:25] LABS: Urine Appearance Clear (CLEAR); Urine Blood 5 /ul (NEGATIVE); Urine Color Yellow
[2020-12-04 16:28] LABS: Urine Bacteria None Seen; Urine RBC 0-5 /hpf (0-5); Urine WBC None Seen /hpf (0-5)
[2020-12-04 16:40] LABS: Cocaine Ur Negative (NEGATIVE); Urine Barbiturate Negative (NEGATIVE); Urine Benzodiazepines Negative (NEGATIVE); Urine Opiates Negative (NEGATIVE); Urine PCP Negative (NEGATIVE); Urine THC Negative (NEGATIVE)
--- NOTE | 2020-12-04 21:18 | HP ---
Chief Complaint - Chief Complaint Date of Service: 12/04/20 Time of Service: 21:12 Chief Complaint: Hypokalemia History of Present Illness: 29-year-old female with no real past medical history presented to the hospital today after having some chest discomfort and some jerking arms. Patient states that she was out in the heat mostly after working 24-hour shift at the [employer]. Today at work she started to feel some chest discomfort and is starting to have arm twitchiness and so a coworker brought her to the hospital evaluated. Initial work-up was negative aside from low potassium at 2.5. EKG within normal limits the rest of her labs were fairly benign. She did have an elevated lactic acid at 4.7 that returned to 0.8 after hydration in the ER. Otherwise the rest of her lab work was benign. Patient has history of hypokalemia in the past where she was admitted for potassium 2.2 while . Patient takes potassium 20 mEq daily. Patient likely did not get up electrolytes and yesterday when she was at the son's wedding is much she was. She was admitted for potassium replacement. Otherwise she feels well and has no concerns at this time. Chest discomfort and arm twitching has had subsided the time she got to the floor. 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 Vaginal discharge (Acute) SVT (supraventricular tachycardia) (Acute) Screening for condition (Acute) Left ankle sprain (Acute) Foot sprain (Acute) Tachycardia (Acute) Bulimia nervosa (Acute) Gastroenteritis and colitis, viral (Acute) Anemia Onset Date: Unknown Asthma Onset Date: Unknown Colitis Onset Date: Unknown Generalized anxiety disorder Onset Date: Unknown IBS (irritable bowel syndrome) Onset Date: Unknown Palpitations Onset Date: Unknown Tachycardia UTI (urinary tract infection) Onset Date: Unknown Surgical History: Surgical History (Last Reviewed 12/04/20 @ 19:15 by Yaritza Hogan RN) History of placement of ear tubes Onset Date: Unknown Family History: Family History (Last Updated 12/04/20 @ 19:15 by Yaritza Hogan RN) Grandmother Heart problem Grandfather Leukemia Paternal Mother Cancer Hypertension Father Cancer Grandmother Cancer Paternal Grandfather Diabetes Cancer Maternal Other Patient's sister is in good health Social History: (Last Reviewed 12/04/20 @ 19:15 by Yaritza Hogan RN) Social History: adopted: No Marital status: Single household members: significant other number of children: 2 number of grandchildren: 0 current occupational status: employed 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 Highest level of school completed/degree received: high school graduate Sexually Active: Yes Service: No Tobacco: Smoking Status: Current every day smoker tobacco type: cigarettes Smoking cigarettes per day: 4 Smoking packs per day: 1 Alcohol: alcohol intake: former details: stopped with Substance Use: substance use type: does not use Dietary Habits: caffeine: No Review Of Systems (GEN) - Review of Systems Generalized/Overall Review: Present: No Symptoms Reported EENTM: Present: No Symptoms Reported Respiratory: Present: No Symptoms Reported Cardiac: Present: Other - Chest discomfort, resolved Abdominal: Present: No Symptoms Reported Genitourinary: Present: No Symptoms Reported Musculoskeletal: Present: Other - Jerky arm motions, resolved Neurological: Present: No Symptoms Reported Skin: Present: No Symptoms Reported Endocrine: Present: No Symptoms Reported Immunizations: IMMUNIZATION HX Immunizations Up to Date Yes History of Influenza Vaccine No Hx Pneumococcal Vaccination No Allergies/Adverse Reactions: Allergies Allergy/AdvReac Type Severity Reaction Status Date / Time No Known Allergies Allergy Verified 10/30/19 15:08 Home Medications: HOME MEDICATIONS Levonorgestrel [Mirena] 1 ea IU 10/30/19 [Last Taken 10/27/19] Exam - Exam Vital Signs: Vital Signs - Last Taken Temp 36.1 C 12/04/20 18:47 Pulse 77 12/04/20 18:47 Resp 16 12/04/20 18:47 BP 117/78 12/04/20 18:47 Pulse Ox 96 12/04/20 18:47 Constitutional: Present: Alert, Oriented x3, Cooperative, Well developed ENT Exam: Present: hearing grossly normal Eye Exam: bilateral eye: normal inspection, EOMI Neck: Present: non-tender, supple Back Exam: Present: normal inspection, no CVA tenderness Respiratory: Present: lungs clear, normal breath sounds Cardiovascular/Chest: Present: regular rate, rhythm, no murmur Peripheral Pulses: dorsalis-pedis (R): 2+, dorsalis-pedis (L): 2+ Abdomen: Present: soft, nontender, nondistended Skin Exam: Present: normal color, warm/dry Neurologic: Present: alert, normal mood/affect, oriented x 3 Appearance: Present: appropriate appearance, appropriate insight Eye contact: Present: cooperative, good eye contact Thoughts: Present: normal thought pattern, normal mood /affect Diagnostic Studies: Abnormal Lab Results 12/04/20 12/04/20 12/04/20 Range/Units 14:43 14:43 14:43 MCH 32.2 H (27-31) pg RDW 11.4 L (11.5-14.0) % Potassium 2.5 L (3.4-4.6) mmol/L Chloride 94 L (97-106) mmol/L Anion Gap 15.0 H (6.8-13.8) mmol/L Lactic Acid, Venous 4.7 H* (0.4-2.0) mmol/L Urine Blood (NEGATIVE) /ul 12/04/20 Range/Units 16:00 MCH (27-31) pg RDW (11.5-14.0) % Potassium (3.4-4.6) mmol/L Chloride (97-106) mmol/L Anion Gap (6.8-13.8) mmol/L Lactic Acid, Venous (0.4-2.0) mmol/L Urine Blood 5 H (NEGATIVE) /ul Laboratory Results WBC 9.3 K/mm3 (4.0-10.5) 12/04/20 14:43 RBC 4.44 M/mm3 (4.2-5.4) 12/04/20 14:43 Hgb 14.3 gm/dL (12.5-16.0) 12/04/20 14:43 Hct 41.9 % (37.0-47.0) 12/04/20 14:43 MCV 94.4 fl (78-100) 12/04/20 14:43 MCH 32.2 pg (27-31) H 12/04/20 14:43 MCHC 34.1 g/dl (32-36) 12/04/20 14:43 RDW 11.4 % (11.5-14.0) L 12/04/20 14:43 Plt Count 287 K/mm3 (150-450) 12/04/20 14:43 MPV 8.7 fl (8-12.5) 12/04/20 14:43 Immature Gran % (Auto) 0.30 % (0.001-0.429) 12/04/20 14:43 Immature Gran # (Auto) 0.03 K/mm3 (0.000-0.0310) 12/04/20 14:43 Neutrophils % 54.8 % (42-75.0) 12/04/20 14:43 Lymphocytes % 36.8 % (20-51) 12/04/20 14:43 Monocytes % 7.2 % (0.0-9) 12/04/20 14:43 Eosinophils % 0.6 % (0.0-3.0) 12/04/20 14:43 Basophils % 0.3 % (0.0-1.0) 12/04/20 14:43 Nucleated RBC % 0.0 k/mm3 (0-1) 12/04/20 14:43 Neutrophils # 5.1 K/mm3 (1.3-6.0) 12/04/20 14:43 Lymphocytes # 3.43 k/mm3 (1.5-3.5) 12/04/20 14:43 Monocytes # 0.7 k/mm3 (0.0-1.0) 12/04/20 14:43 Eosinophils # 0.1 k/mm3 (0.0-0.7) 12/04/20 14:43 Absolute Basophils 0.0 k/mm3 (0.0-0.1) 12/04/20 14:43 Sodium 133 mmol/L (132-142) 12/04/20 14:43 Plasma Sodium 133 mmol/L (130-142) 12/04/20 14:43 Potassium 2.5 mmol/L (3.4-4.6) L 12/04/20 14:43 Chloride 94 mmol/L (97-106) L 12/04/20 14:43 Carbon Dioxide 26.5 mmol/L (24-32.6) 12/04/20 14:43 Anion Gap 15.0 mmol/L (6.8-13.8) H 12/04/20 14:43 BUN 9 mg/dL (3-23) 12/04/20 14:43 Creatinine 0.79 mg/dL (0.4-1.4) 12/04/20 14:43 Est GFR (Non-Af Amer) 91 mL/min (60-130) 12/04/20 14:43 BUN/Creatinine Ratio 11.4 (9.0-21.6) 12/04/20 14:43 Random Glucose 99 mg/dL (70-110) 12/04/20 14:43 Lactic Acid, Venous 0.8 mmol/L (0.4-2.0) 12/04/20 17:34 Calcium 8.5 mg/dL (7.9-10.9) 12/04/20 14:43 Calcium Adj for Albumin 8.4 mg/dL (8.4-10.2) 12/04/20 14:43 Total Bilirubin 0.4 mg/dL (0.0-1.1) 12/04/20 14:43 AST 30 U/L (0-48) 12/04/20 14:43 ALT 26 U/L (19-67) 12/04/20 14:43 Alkaline Phosphatase 76 U/L (50-170) 12/04/20 14:43 Creatine Kinase 191 U/L (0-259) 12/04/20 14:43 Total Protein 7.1 gm/dL (6.2-8.2) 12/04/20 14:43 Albumin 3.7 gm/dl (3.4-5.0) 12/04/20 14:43 Urine Color Yellow 12/04/20 16:00 Urine Appearance Clear (CLEAR) 12/04/20 16:00 Urine pH 8.5 pH (5.0-7.0) 12/04/20 16:00 Ur Specific [place] 1.010 SP.GR. (1.005-1.010) 12/04/20 16:00 Urine Protein Negative mg/dL (NEGATIVE) 12/04/20 16:00 Urine Glucose (UA) Negative mg/dL (NEGATIVE) 12/04/20 16:00 Urine Ketones Negative mg/dL (NEGATIVE) 12/04/20 16:00 Urine Blood 5 /ul (NEGATIVE) H 12/04/20 16:00 Urine Nitrate Negative (NEGATIVE) 12/04/20 16:00 Urine Bilirubin Negative mg/dl (NEGATIVE) 12/04/20 16:00 Urine Urobilinogen Normal EU/dl (NORMAL) 12/04/20 16:00 Ur Leukocyte Esterase Negative /ul (NEGATIVE) 12/04/20 16:00 Urine RBC 0-5 /hpf (0-5) 12/04/20 16:00 Urine WBC None seen /hpf (0-5) 12/04/20 16:00 Ur Epithelial Cells 0-5 /hpf (0-5) 12/04/20 16:00 Urine Bacteria None seen (NONE) 12/04/20 16:00 Urine Culture Comments No culture indicated 12/04/20 16:00 Urine Opiates Screen Negative (NEGATIVE) 12/04/20 16:00 Barbiturate Screen Negative (NEGATIVE) 12/04/20 16:00 Ur Phencyclidine Scrn Negative (NEGATIVE) 12/04/20 16:00 Urine Amphetamine Negative (NEGATIVE) 12/04/20 16:00 U Benzodiazepines Scrn Negative (NEGATIVE) 12/04/20 16:00 Urine Cocaine Screen Negative (NEGATIVE) 12/04/20 16:00 Urine Marijuana (THC) Negative (NEGATIVE) 12/04/20 16:00 SARS-CoV-2 (PCR) Not detected (NotDetected) 12/04/20 16:00 Assessment/Plan - Narrative Narrative: 29-year-old female admitted under observation for potassium replacement. Init ial potassium 2.5. She was given a liter of normal saline after her lactic acid came back at 4.7 which returned to 0.8 after follow-up. She has 4 potassium riders ordered for a total of 40 mEq to be given tonight. Should be given a dose of 40 mEq in the morning p.o. Repeat BMP 2 hours after potassium dose. Likely discharge home tomorrow with change in home potassium regimen. Patient has no concerns at this time and feels well. SCDs to be worn while in bed. Regular diet ordered. Nurse to call questions or concerns. - Assessment/Plan (1) Hypokalemia Problem: Acute
[2020-12-05] MEDS: POTASSIUM CHLORIDE 20 MEQ/15 ML UDC PO SCH ×2 (07:06→09:24)
[2020-12-05 09:21] LABS: BUN/Creatinine Ratio 9.6 (9.0-21.6); Calcium * 8.4 mg/dL (7.9-10.9); Carbon Dioxide 26.2 mmol/L (24-32.6); Estimated Creat Clear 96.4; Potassium 4.2 mmol/L (3.4-4.6)
[2020-12-05 10:29] VITALS: BP 117/81
--- NOTE | 2020-12-05 10:30 | DS ---
(1) Hypokalemia Problem: Acute Date of Discharge:: 12/05/20 Hospital Course: 30-year-old female with no real pertinent past medical history who likely overexerted herself in the heat and has some electrolyte imbalances upon admission. Potassium initially was 2.5 but after replenishment came up to 4.2 this morning. She feels well and is ready to get out of here. She does not take any other medications. We will start her on 20 mEq of potassium daily and have her follow-up with me in 3 days for repeat BMP. She was on 10 mEq prior to her admission and she states that she was taken it so we will just need to watch her potassium on this larger dose. Otherwise her vital signs been stable and she has been while here. She is in agreement with following up with me in 3 days for BMP, this will be ordered prior to discharge. Otherwise we will send in 40 mEq potassium to be taken daily to her pharmacy. She had no other questions or concerns. Procedures Performed: none Results and Findings: Lab Pending Results 12/04/20 14:43: WBC 9.3, RBC 4.44, Hgb 14.3, Hct 41.9, MCV 94.4, MCH 32.2 H, MCHC 34.1, RDW 11.4 L, Plt Count 287, MPV 8.7, Immature Gran % (Auto) 0.30, Immature Gran # (Auto) 0.03, Neutrophils % 54.8, Lymphocytes % 36.8, Monocytes % 7.2, Eosinophils % 0.6, Basophils % 0.3, Nucleated RBC % 0.0, Neutrophils # 5.1, Lymphocytes # 3.43, Monocytes # 0.7, Eosinophils # 0.1, Absolute Basophils 0.0 12/04/20 14:43: Sodium 133, Plasma Sodium 133, Potassium 2.5 L, Chloride 94 L, Carbon Dioxide 26.5, Anion Gap 15.0 H, BUN 9, Creatinine 0.79, Est GFR (Non-Af Amer) 91, BUN/Creatinine Ratio 11.4, Random Glucose 99, Calcium 8.5, Calcium Adj for Albumin 8.4, Total Bilirubin 0.4, AST 30, ALT 26, Alkaline Phosphatase 76, Total Protein 7.1, Albumin 3.7 12/04/20 14:43: Lactic Acid, Venous 4.7 H* 12/04/20 14:43: Creatine Kinase 191 12/04/20 16:00: Urine Color Yellow, Urine Appearance Clear, Urine pH 8.5, Ur Specific [place] 1.010, Urine Protein Negative, Urine Glucose (UA) Negative, Urine Ketones Negative, Urine Blood 5 H, Urine Nitrate Negative, Urine Bilirubin Negative, Urine Urobilinogen Normal, Ur Leukocyte Esterase Negative, Urine RBC 0-5, Urine WBC None seen, Ur Epithelial Cells 0-5, Urine Bacteria None seen, Urine Culture Comments No culture indicated 12/04/20 16:00: Urine Opiates Screen Negative, Barbiturate Screen Negative, Ur Phencyclidine Scrn Negative, Urine Amphetamine Negative, U Benzodiazepines Scrn Negative, Urine Cocaine Screen Negative, Urine Marijuana (THC) Negative 12/04/20 16:00: SARS-CoV-2 (PCR) Not detected 12/04/20 17:34: Lactic Acid, Venous 0.8 12/05/20 09:00: Sodium 139, Plasma Sodium 139, Potassium 4.2 D, Chloride 107 H, Carbon Dioxide 26.2, Anion Gap 10.0, BUN 7, Creatinine 0.73, Est GFR (Non-Af Amer) 99, BUN/Creatinine Ratio 9.6, Random Glucose 111 H, Calcium 8.4 Discharge Location: Home Disposition: Home self-care Condition: Good Discharge Activity: Activity as tolerated Discharge Diet: General/regular food Referrals: Marvin Quiroz DO [Staff Physician] - Two Weeks (3 days for repeat BMP at Lab and then two weeks to see me) Prescriptions (Any new or edited meds): Potassium Chloride [K-Dur] 20 meq PO DAILY #30 tab Transmission Status: Pending to [facility], [place], [place] Complete Home Medications List: Complete Home Medication List: Levonorgestrel [Mirena] 1 ea IU 10/30/19 Potassium Chloride [K-Dur] 20 meq PO DAILY #30 tab 12/05/20
== END 2020-12-05 10:40 | disposition home or self-care (01) ==
LOC: ER 14:29 → MS 14:29
PROVIDERS: ADMIT Family Medicine; ATTEND Family Medicine